=== PATIENT | female | born 2005 | race African-American/Black ===

== ENCOUNTER → 2024-01-24 19:07 | Outpatient (REF) | payer BC, SELFPAY ==
[2024-01-25 18:31] LABS: Urine Albumin Trace (Neg - Trace); Urine Bilirubin Negative (Negative); Urine Character Slightly Cloudy (Clear); Urine Color Yellow; Urine Glucose Negative (Negative); Urine Ketone Negative (Negative); Urine Leukocyte 2+ (Negative); Urine Nitrite Negative (Negative); Urine Occult Blood 4+ (Negative); Urine Urobilinogen Negative (Neg - 1+)
[2024-01-25 18:53] LABS: Urine Bacteria Many (Negative); Urine Red Blood Cell 50-60 /HPF (0-2); Urine White Cell 16-20 /HPF (0-5)
== END ==
LOC: CLAB 19:07
PROVIDERS: ATTENDING PHYSICIAN Family Medicine
DX: R30.0 Dysuria (principal)
CPT/HCPCS: 81003; 81015; 87086

== ENCOUNTER → 2024-03-27 15:03 | Outpatient (REF) | payer BC, SELFPAY ==
[2024-03-31 09:28] LABS: HPV, High Risk Not Detected; HPV, High Risk Source Cervical
== END ==
LOC: CPAP 15:03
PROVIDERS: ATTENDING PHYSICIAN Nurse Practitioner Family
DX: Z01.419 Encounter for gynecological examination (general) (routine) without abnormal findings (principal); Z11.51 Encounter for screening for human papillomavirus (HPV); Z11.3 Encounter for screening for infections with a predominantly sexual mode of transmission
CPT/HCPCS: 87491; 87591; 87624

== ENCOUNTER → 2024-10-07 15:15 | Outpatient (REF) | payer BC, OTHER, SELFPAY | LOC: CLAB 15:15 | PROVIDERS: ATTENDING PHYSICIAN Obstetrics & Gynecology | DX: Z34.90 Encounter for supervision of normal pregnancy, unspecified, unspecified trimester (principal); Z36.85 Encounter for antenatal screening for Streptococcus B | CPT/HCPCS: 87070 ==

== ENCOUNTER 2024-11-01 16:21 | Inpatient (IN) | payer BC, OTHER, SELFPAY ==
[2024-11-01 16:30] VITALS: BP 143/86; BMI 31.1
[2024-11-01 18:03] LABS: Hematocrit 32.2 % (37.0-47.0); Hemoglobin 11.1 g/dL (12.0-16.0); Mean Corp Hgb Conc. 34.5 g/dL (33.0-37.0); Mean Corpuscular Hgb 27.8 pg (27.0-31.0); Mean Corpuscular Volume 80.5 fL (81.0-99.0); Mean Platelet Volume 9.1 fL (7.4-10.4); Platelet Count 211 10^3/uL (130-400); Red Cell Dist. Width 13.8 % (11.5-14.5)
[2024-11-01 18:20] LABS: ALT (SGPT) 13 U/L (0-35); AST (SGOT) 26 U/L (14-36); Albumin 4.1 g/dl (3.5-5.0); Alkaline Phosphatase 156 U/L (38-126); Blood Urea Nitrogen 6 mg/dl (7-17); Calcium 10.1 mg/dl (8.4-10.2); Carbon Dioxide 22 mmol/L (22-30); Chloride 103 mmol/L (98-107); Estimated Creatinine Clearance > 125 ml/min; Glucose 85 mg/dl (70-99); Potassium 4.4 mmol/L (3.5-5.1); Sodium 133 mmol/L (135-145); Total Bilirubin 0.4 mg/dl (0.2-1.3); Total Protein 7.4 g/dl (6.3-8.2); eGFR > 60.00
[2024-11-01 18:21] LABS: Protein/creatinine Ratio 0.1; Urine Protein 10 mg/dl
[2024-11-01] MEDS: CYTOTEC 25 MICROGRAM VAG (19:39)
[2024-11-01] MEDS: LR 1000 IV (22:15)
[2024-11-02] MEDS: CYTOTEC 50 MICROGRAM PO ×2 (00:01→05:08)
[2024-11-02] MEDS: LR 1000 IV ×3 (06:43→20:33)
[2024-11-02] MEDS: PITOCIN 30 UNITS/NSS 500 ML IV (11:15)
[2024-11-02] MEDS: SUBLIMAZE 100 MCG EPIDURAL (12:34)
[2024-11-02] MEDS: FENTANYL/BUPIVACAINE 100 EPIDURAL ×2 (12:34→20:33)
[2024-11-02] MEDS: CYTOTEC PO ×4 (15:04→20:51)
[2024-11-03] MEDS: LR 1000 IV (00:59)
[2024-11-03] MEDS: XYLOCAINE-MPF 1% VIAL 30 ML INFIL (02:30)
[2024-11-03] MEDS: TYLENOL 650 MG PO ×3 (04:50→20:45)
[2024-11-03] MEDS: MOTRIN 600 MG PO ×3 (04:50→20:45)
[2024-11-03] MEDS: PRENATAL PLUS 1 TABLET PO (07:33)
[2024-11-03] MEDS: SENOKOT-S 1 TABLET PO (07:33)
--- NOTE | 2024-11-03 15:00 | CM ---
Attempted to see pt regarding CM consult for breast pump
Pt was in shower - will check back with pt at another time
[2024-11-04 05:36] LABS: Hematocrit 27.4 % (37.0-47.0); Hemoglobin 9.1 g/dL (12.0-16.0)
[2024-11-04] MEDS: SENOKOT-S 1 TABLET PO (08:29)
[2024-11-04] MEDS: PRENATAL PLUS 1 TABLET PO (08:30)
[2024-11-04] MEDS: TYLENOL 650 MG PO (08:30)
[2024-11-04] MEDS: MOTRIN 600 MG PO ×3 (08:30→23:02)
--- NOTE | 2024-11-04 11:11 | CM ---
Met with new mother Emily
Confirmed listed address and phone number
Mom has named Sanborn
Father of supportive - sleeping in room. Has family support
Mom plans to breast feed - requesting a breast pump
Mom acknowledges she has supplies for her including car seat and crib
Artur Miller
[employer] - [facility]
Mom unsure of which breast pump she would like to order - given order form to review. Instructed mom to review and notify her nurse to contact CM when she has made decision. RN updated
Plan - CM will order breast pump pending mom's choice of breast pump
[2024-11-04] MEDS: FEOSOL 325 MG PO (11:19)
[2024-11-04] MEDS: HYDROCORTISONE 2.5% CREAM 1 APPLIC TOPICAL (23:03)
[2024-11-05] MEDS: PRENATAL PLUS 1 TABLET PO (09:15)
[2024-11-05] MEDS: FEOSOL 325 MG PO (09:15)
[2024-11-05] MEDS: TYLENOL 650 MG PO (09:15)
[2024-11-05] MEDS: MOTRIN 600 MG PO (09:15)
--- NOTE | 2024-11-05 10:30 | CM ---
For discharge today
Reports has ordered breast pump thru company
No other needs anticipated
[2024-11-05 13:39] LABS: Syphilis/T. pallidum Ab Reflex Negative (Negative)
== END 2024-11-05 11:16 | disposition home or self-care (01) | DRG 807 ==
LOC: LDRP 16:21
PROVIDERS: Obstetrics & Gynecology; ADMITTING PHYSICIAN Student in an Organized Health Care Education/Training Program; FAMILY PHYSICIAN Family Medicine
PROC: 3E0P7VZ Introduction of Hormone into Female Reproductive, Via Natural or Artificial Opening (ICD-10-PCS; 2024-11-01)
PROC: 3E033VJ Introduction of Other Hormone into Peripheral Vein, Percutaneous Approach (ICD-10-PCS; 2024-11-01)
PROC: 10907ZC Drainage of Amniotic Fluid, Therapeutic from Products of Conception, Via Natural or Artificial Opening (ICD-10-PCS; 2024-11-03)
PROC: 0UQMXZZ Repair Vulva, External Approach (ICD-10-PCS; 2024-11-03)
PROC: 10E0XZZ Delivery of Products of Conception, External Approach (ICD-10-PCS; 2024-11-03)
DX: O48.0 Post-term pregnancy (principal); Z37.0 Single live birth; Z3A.40 40 weeks gestation of pregnancy; O70.0 First degree perineal laceration during delivery; O76 Abnormality in fetal heart rate and rhythm complicating labor and delivery; O36.8130 Decreased fetal movements, third trimester, not applicable or unspecified; O66.0 Obstructed labor due to shoulder dystocia
CPT/HCPCS: 76815; 80053; 82570; 84156; 85014; 85018; 85027; 86780; 86850; 86900; 86901

== ENCOUNTER → 2025-04-28 12:56 | Outpatient (REF) | payer BC, OTHER, SELFPAY | LOC: RAD 12:56 | PROVIDERS: ATTENDING PHYSICIAN Family Medicine | DX: M25.552 Pain in left hip (principal) | CPT/HCPCS: 73502 ==

== ENCOUNTER → 2025-06-04 19:40 | Outpatient (REF) | payer BC, OTHER, SELFPAY | LOC: MRI 19:40 | PROVIDERS: ATTENDING PHYSICIAN Physician Assistant; FAMILY PHYSICIAN Family Medicine | DX: M25.552 Pain in left hip (principal) | CPT/HCPCS: 73721 ==

== ENCOUNTER 2025-07-02 13:40 | Emergency (ER) | payer BC, OTHER, SELFPAY ==
[2025-07-02 13:45] VITALS: BP 114/94
[2025-07-02 13:57] LABS: Hematocrit 38.4 % (37.0-47.0); Hemoglobin 13.7 g/dL (12.0-16.0); Mean Corp Hgb Conc. 35.7 g/dL (33.0-37.0); Mean Corpuscular Volume 84.0 fL (81.0-99.0); Nucleated Red Blood Cells % 0 %; Platelet Count 328 10^3/uL (130-400); Red Cell Dist. Width 13.0 % (11.5-14.5)
[2025-07-02 14:15] LABS: Blood Urea Nitrogen 12 mg/dl (7-17); Calcium 9.5 mg/dl (8.4-10.2); Carbon Dioxide 25 mmol/L (22-30); Chloride 107 mmol/L (98-107); Glucose 108 mg/dl (70-99); Sodium 139 mmol/L (135-145); eGFR > 60.00
[2025-07-02 14:36] LABS: Beta HCG Quantitative 185.42 mIU/ml
--- NOTE | 2025-07-02 15:59 | ED.GENMED ---
History of Present Illness
General
Chief Complaint: Problems
Time Seen by Provider: 07/02/25 15:08
History of Present Illness
History of Present Illness:
20-year-old presenting to the emergency department for concern of threatened miscarriage. Patient is about 8 weeks and 5 days from LMP of May 02. She went to the [facility] today and had a bedside ultrasound that showed
abnormal gestational sac, measuring closer to 5 weeks. She was advised to come to the hospital for additional testing. Notes some mild cramping yesterday, however denies any vaginal bleeding. Denies any complications with previous .
Denies fever. Denies urinary complaints. Denies additional acute medical complaints
Phy Exam
Physical Exam
Physical Exam:
General: Well-appearing, no clinical signs of dehydration, nontoxic and in no acute distress
HEENT: protecting airway
Neck: appears supple
CV: Normal heart rate
Resp: No accessory muscle use, no increased work of breathing
Abd: Soft and non-distended, no tenderness to palpation
Extremities: No deformities, no swelling
Neuro: alert, no focal neurologic deficit
: deferred
Rectal: deferred
Psych: Normal affect
Skin: Intact
Course
Orders/Labs/Results
Orders:
Orders
07/02/25 13:51
Type+Screen Urgent
Basic Metabolic Panel Urgent
Beta HCG Quantitative Urgent
Is this a screen?: No
Complete Blood Count/With Diff Urgent
07/02/25 15:21
US W Transvaginal Urgent
Reason For Exam: abnormal beta quant, LMP MAY 26
Abnormal Lab Results
07/02/25
13:51
Glucose 108 H mg/dl
(70-99)
07/02/25 13:51
07/02/25 13:51
Vital Signs
Initial and Last Documented VS:
Initial Vital Signs
Temp Pulse Resp BP Pulse Ox
98.7 F 89 19 114/94 99
07/02/25 13:45 07/02/25 13:45 07/02/25 13:45 07/02/25 13:45 07/02/25 13:45
Last Documented Vital Signs
Temp Pulse Resp BP Pulse Ox
98.6 F 82 16 108/74 98
07/02/25 17:52 07/02/25 17:52 07/02/25 17:52 07/02/25 17:52 07/02/25 17:52
Information
Weeks gestation: Weeks: (4)
Location: N/A
MDM/Problems Addressed
MDM/Problems Addressed:
20-year-old female, , presenting for and concern of threatened miscarriage. Vital signs on arrival are normal.
On exam, patient is resting comfortably, no acute distress. Patient arrives with ultrasound report, bedside which noted abnormality to gestational sac and free fluid in the pelvis. Labs obtained prior to my assessment, beta quantitative level is
low at 182. Given LMP, concern for threatened miscarriage versus inaccurate dating. Given no formal ultrasound completed, with free fluid reported in the pelvis, ectopic is also consideration. Will obtain formal ultrasound imaging.
17:20 -ultrasound without any visualized intrauterine . Alerted by budget technician that patient has her dates wrong and her last menstrual period was June 01. At this time suspect very early . Ectopic is still consideration,
however no significant pain or hemodynamic instability. Feel stable for discharge with close and will follow-up with obstetrics. Return precautions discussed and patient verbalized understanding
*Pulse Oximetry
SaO2: 99
Oxygen Mode of Delivery: Room air
Patient hypoxic: no
*Critical Care Note
Total Time (30-74mins, 75-104mins- exclusive of procedures): Not Applicable
ED Attending Note
-
Portions of this chart may have been created with voice recognition software.� Occasional wrong word or��sound alike� substitutions may have occurred due to the inherent limitations of voice recognition software.
Discharge Plan
Departure
Patient Disposition: Home (Routine Discharge)
Date of Disposition: 07/02/25
Time of Disposition: 17:29
Patient with high blood pressure during this ER visit?: No
Condition: Good
Discharge Problem:
of unknown anatomic location
Instructions: Threatened Miscarriage (DC)
Prescriptions:
No Action
prenat.vits,natalya,[id number]-bikgm Tablet
1 tab PO DAILY
acetaminophen 325 mg Tablet
650 mg PO Q4HPRN PRN (Reason: mild pain) Qty: 0 0RF
sennosides-docusate sodium 8.6-50 mg Tablet
1 tab PO DAILYPRN PRN (Reason: constipation) Qty: 0 0RF
ferrous sulfate [FeroSul] 325 mg (65 mg iron) Tablet
325 mg PO DAILY Qty: 0 0RF
calcium carbonate [Calcium Antacid] 200 mg calcium (500 mg) Tablet,Chewable
400 mg PO Q6HPRN PRN (Reason: indigestion) Qty: 0 0RF
hydrocortisone 2.5 % Cream
1 applic topical BID PRN (Reason: hemorrhoids) Qty: 0 0RF
ibuprofen 600 mg Tablet
600 mg PO Q6HPRN PRN (Reason: moderate pain/cramps) Qty: 45 0RF
Referrals:
Estiven Richey MD [Family Provider, Gynecology]
Activity Restrictions/Additional Instructions:
You were seen in the emergency department for new
You were found to have a positive test, however an ultrasound without visualization of location of . At this time we suspect a very early . You will need close interval follow-up with the OB doctor. We recommend
follow-up with the OB doctor or follow-up to the ER in 2 to 3 days for repeat beta quantitative testing. Return immediately to the ER with any increase in abdominal pain or vaginal bleeding
Please follow-up closely with your primary care physician.
Return to the emergency department for any worsening of your symptoms, or any development of chest pain, difficulty breathing, abdominal pain with persistent vomiting and inability to tolerate food or liquid by mouth (concern for dehydration),
weakness, headache or confusion, fever greater than 100.4, or any additional symptoms that are concerning to you.
Thank you for choosing [facility].
Interventions
Interventions:
*Risk Screen - Suicide Last Done: 07/02/25 13:45
*General Assessment Last Done: 07/02/25 13:45
*Neglect/Abuse Screening Last Done: 07/02/25 13:45
*Nursing Disposition Last Done: 07/02/25 17:53
ED-Female Genitourinary Assessment Last Done: 07/02/25 17:17
Discharge Date and Time
Discharge Date/Time: 07/02/25 17:53
Print Language: TELUGU
[2025-07-02 17:52] VITALS: BP 108/74
== END 2025-07-02 17:53 | disposition home or self-care (01) ==
LOC: EMR 13:40
PROVIDERS: Emergency Medicine; EMERGENCY PHYSICIAN Student in an Organized Health Care Education/Training Program; FAMILY PHYSICIAN Obstetrics & Gynecology
DX: O36.80X0 Pregnancy with inconclusive fetal viability, not applicable or unspecified (principal); R10.9 Unspecified abdominal pain; Z3A.01 Less than 8 weeks gestation of pregnancy
CPT/HCPCS: 99284; 76801; 76817; 80048; 84702; 85025; 86850; 86900; 86901

== ENCOUNTER → 2025-07-04 09:26 | Outpatient (REF) | payer BC, OTHER, SELFPAY | LOC: REG 09:26 | PROVIDERS: ATTENDING PHYSICIAN Obstetrics & Gynecology; FAMILY PHYSICIAN Family Medicine | DX: O36.80X0 Pregnancy with inconclusive fetal viability, not applicable or unspecified (principal) | CPT/HCPCS: 36415; 84702 ==

== ENCOUNTER 2025-07-23 22:38 | Emergency (ER) | payer BC, OTHER, SELFPAY ==
[2025-07-23 22:39] VITALS: BP 119/72
--- NOTE | 2025-07-23 23:53 | ED.GENMED ---
History of Present Illness
General
Chief Complaint: Abdominal Symptoms
Time Seen by Provider: 07/23/25 23:53
History of Present Illness
History of Present Illness:
FOCUSED PAST MEDICAL HISTORY
- No significant past medical history
REVIEW OF OLD RECORDS
- Ultrasound from 07/02/2025 showed no IUP
- Although not available in records, patient reports live IUP was noted on more recent ultrasound not done for Lyudmila and she states that she is 7 weeks and 5 days
Note:
CHIEF COMPLAINT(S)
Vomiting and diarrhea.
HISTORY OF PRESENT ILLNESS
The patient is a 20-year-old female who presents with vomiting, diarrhea, nausea, and abdominal cramping. She is in the early stages of and recently had an ultrasound that showed a viable . At this visit, she reports an absence of
abdominal pain but significant vomiting and diarrhea that began recently. She is unable to keep fluids down, leading to dehydration. 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
EXTERNAL RECORDS REVIEWED
The patient recently had an ultrasound, which showed a normal and viable .
PLAN
Administer intravenous (IV) fluids to address dehydration due to vomiting and diarrhea. Monitor her response to the treatment.
DIFFERENTIAL DIAGNOSIS
The Differential Diagnosis includes, in no particular order, and is not limited to:
1. Gastroenteritis
2. Hyperemesis gravidarum
3. Early -related nausea and vomiting
4. Food poisoning
5. Viral gastroenteritis
6. Bacterial gastroenteritis
7. Appendicitis
8. UTI (Urinary Tract Infection)
9. Small bowel obstruction
10. Peptic ulcer disease
PHYSICAL EXAM
- General: Well appearing in no distress
- HEENT: Moist oral mucosa
- Cardiovascular: No murmurs, normal heart rate, regular rhythm, No chest wall tenderness
- Pulmonary: No respiratory distress, breath sounds are clear and equal
- Abdomen: Soft with no peritoneal signs, no significant abdominal tenderness
- Neurologic: Excellent strength all extremities, no coordination deficits
- Psychiatric: Appropriate mental status, normal insight and judgement
- Extremities: Nontender, no edema, moves all extremities equally
- Skin: No rash, no lesions
LABS
- White count 15.7, hemoglobin normal, bicarb 20, potassium normal
SUMMARY OF ENCOUNTER
The patient, a 20-year-old female in the early stages of , presented to the emergency department with complaints of vomiting, diarrhea, nausea, and abdominal cramping. On examination, the patient was found to be dehydrated and required
intravenous (IV) fluids to address this issue. She expressed concern about exposure to illnesses due to her work with children. Her white blood cell count was slightly elevated, which can be attributed to vomiting, diarrhea, and the early stages of
. Her bicarbonate level was marginally low, likely due to dehydration. IV fluids were administered with significant improvement in the patients symptoms, indicating she was being effectively rehydrated.
DISPOSITION
Discharge.
ASSESSMENT
Vomiting, diarrhea, mild dehydration in the context of early .
EMERGENCY TREATMENTS ADMINISTERED
Intravenous (IV) fluids for rehydration.
PLAN
Continue administering IV fluids until the patient feels significantly better. Consider an anti-nausea medication if symptoms persist, though the patient can currently do without it as she feels much improved.
INDEPENDENT REVIEW OF LABS AND INTERPRETATION OF TESTS
- My independent review of CBC indicates a slightly elevated white blood cell count, noted to be common in early and with symptoms like vomiting and diarrhea.
- My independent review of the metabolic panel shows a slightly low bicarbonate level, likely due to dehydration.
PATIENT EDUCATION AND COUNSELING
Discussed the possibility of -safe anti-nausea medications like ondansetron, although they are not absolutely guaranteed to be risk-free. Advised that vomiting and diarrhea typically improve over time, with the first day being the most
severe.
FOLLOW-UP INSTRUCTIONS
The patient should follow up with her primary care provider or landing man if symptoms persist or worsen.
MEDICATION RECONCILIATION
No new prescriptions given; patient felt improved and chose to forgo anti-nausea medication.
MEDICAL DECISION MAKING
- Number and Complexity of Problems Addressed: Chronic conditions affecting care: . Differential Diagnosis includes: Gastroenteritis, Hyperemesis gravidarum, Early -related nausea and vomiting, Food poisoning, Viral
gastroenteritis, Bacterial gastroenteritis, Appendicitis, UTI, Small bowel obstruction, Peptic ulcer disease.
- Data:
- Category 1: External record reviewed: An ultrasound confirming a viable was recently performed and reviewed.
- Category 2: My independent interpretation was made regarding the lab results.
- Risk: Consideration of Admission/Observation: Escalation of care including admission/observation was considered given the complexity and risk of the patients presenting complaint, exam findings, and/or their underlying comorbidities. However,
ultimately the patient is safe for outpatient management with close follow up. Reasoning: Work-up reassuring, does not reveal any acute life/organ threatening processes, patients symptoms well controlled upon reevaluation, reexamination is
reassuring, vitals are stable, patient agreeable with discharge, reliable for follow-up.
DIAGNOSIS
1. Nausea and vomiting in (ICD-10: O21.9)
2. Diarrhea (ICD-10: R19.7)
3. Mild dehydration (ICD-10: E86.0)
UPDATE
-Slightly low bicarb
-Leukocytosis likely due to stress reaction from nausea and vomiting
-Feels markedly improved on reassessment even after just 1 L of fluid
-Started second liter of fluid as well
Phy Exam
Physical Exam
Physical Exam:
See HPI
Course
Orders/Labs/Results
Orders:
Orders
07/23/25 23:53
Complete Blood Count/With Diff Urgent
Comprehensive Metabolic Panel Urgent
0.9% Sodium Chloride 1000 ml [Nss] 1,000 ml IV BOLUS
07/24/25 00:02
0.9% Sodium Chloride 1000 ml [Nss] 1,000 ml IV BOLUS
0.9% Sodium Chloride 1000 ml [Nss] 1,000 ml IV BOLUS
Abnormal Lab Results
07/24/25
00:16
WBC 15.7 H 10^3/uL
(4.8-10.8)
Abs Immat Gran (auto) 0.1 H 10^3/uL
(0-0.05)
Absolute Neuts (auto) 14.8 H 10^3/uL
(1.4-6.5)
Absolute Lymphs (auto) 0.2 L 10^3/uL
(1.2-3.4)
Immature Gran % 0.6 H %
(0-0.5)
Neutrophils % 94.7 H %
(42.2-75.2)
Lymphocytes % 1.5 L %
(20.5-51.1)
Sodium 134 L mmol/L
(135-145)
Carbon Dioxide 20 L mmol/L
(22-30)
Glucose 140 H mg/dl
(70-99)
07/24/25 00:16
07/24/25 00:16
Vital Signs
Initial and Last Documented VS:
Initial Vital Signs
Temp Pulse Resp BP Pulse Ox
36.6 C 117 20 119/72 98
07/23/25 22:39 07/23/25 22:39 07/23/25 22:39 07/23/25 22:39 07/23/25 22:39
Last Documented Vital Signs
Temp Pulse Resp BP Pulse Ox
36.6 C 99 18 91/45 100
07/23/25 22:39 07/24/25 01:10 07/24/25 01:10 07/24/25 01:10 07/24/25 01:10
*Pulse Oximetry
SaO2: 98
Oxygen Mode of Delivery: Room air
Patient hypoxic: no
*Critical Care Note
Total Time (30-74mins, 75-104mins- exclusive of procedures): Not Applicable
ED Attending Note
-
Portions of this chart may have been created with voice recognition software.� Occasional wrong word or��sound alike� substitutions may have occurred due to the inherent limitations of voice recognition software.
Discharge Plan
Departure
Prescriptions:
No Action
prenat.vits,natalya,kuu-ntas-qgwhb Tablet
1 tab PO DAILY
acetaminophen 325 mg Tablet
650 mg PO Q4HPRN PRN (Reason: mild pain) Qty: 0 0RF
sennosides-docusate sodium 8.6-50 mg Tablet
1 tab PO DAILYPRN PRN (Reason: constipation) Qty: 0 0RF
ferrous sulfate [FeroSul] 325 mg (65 mg iron) Tablet
325 mg PO DAILY Qty: 0 0RF
calcium carbonate [Calcium Antacid] 200 mg calcium (500 mg) Tablet,Chewable
400 mg PO Q6HPRN PRN (Reason: indigestion) Qty: 0 0RF
hydrocortisone 2.5 % Cream
1 applic topical BID PRN (Reason: hemorrhoids) Qty: 0 0RF
ibuprofen 600 mg Tablet
600 mg PO Q6HPRN PRN (Reason: moderate pain/cramps) Qty: 45 0RF
Referrals:
James Mehta DO [Family Provider, Family Practice]
Interventions
Interventions:
*Risk Screen - Suicide Last Done: 07/23/25 22:39
*General Assessment Last Done: 07/23/25 22:39
*Neglect/Abuse Screening Last Done: 07/23/25 22:39
*ED COVID-19 Vaccine History Last Done: 07/23/25 22:39
*ED Influenza Vaccine History Last Done: 07/23/25 22:39
[facility] Risk Assessment Tool Last Done: 07/23/25 23:28
NM-Peqjwr-Cadpslofrg Assessment Last Done: 07/24/25 00:19
Discharge Date and Time
Print Language: SAMI
[2025-07-24] MEDS: NSS 1000 IV ×2 (00:17→01:09)
[2025-07-24 00:45] LABS: Hematocrit 39.3 % (37.0-47.0); Hemoglobin 13.9 g/dL (12.0-16.0); Mean Corp Hgb Conc. 35.4 g/dL (33.0-37.0); Mean Corpuscular Volume 84.3 fL (81.0-99.0); Nucleated Red Blood Cells % 0 %; Platelet Count 299 10^3/uL (130-400); Red Cell Dist. Width 12.5 % (11.5-14.5)
[2025-07-24 00:51] LABS: ALT (SGPT) 34 U/L (0-35); AST (SGOT) 29 U/L (14-36); Albumin 4.3 g/dl (3.5-5.0); Alkaline Phosphatase 125 U/L (38-126); Blood Urea Nitrogen 13 mg/dl (7-17); Calcium 9.0 mg/dl (8.4-10.2); Carbon Dioxide 20 mmol/L (22-30); Chloride 101 mmol/L (98-107); Glucose 140 mg/dl (70-99); Potassium 4.0 mmol/L (3.5-5.1); Sodium 134 mmol/L (135-145); Total Protein 7.6 g/dl (6.3-8.2); eGFR > 60.00
[2025-07-24 01:10] VITALS: BP 91/45
[2025-07-24 02:20] VITALS: BP 99/56
== END 2025-07-24 02:21 | disposition home or self-care (01) ==
LOC: EMR 22:38
PROVIDERS: EMERGENCY PHYSICIAN Emergency Medicine; FAMILY PHYSICIAN Family Medicine
DX: O26.891 Other specified pregnancy related conditions, first trimester (principal); E86.0 Dehydration; Z3A.01 Less than 8 weeks gestation of pregnancy
CPT/HCPCS: 99284; 96360; 96361; 80053; 85025